=== PATIENT | female | born 2005 | race Caucasian/White ===

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

== ENCOUNTER → 2024-01-05 | Outpatient (CLI) | payer OTHER ==
--- NOTE | 2024-02-14 13:16 | NM ---
Site ID [facility] Patient Loida Dangelo ID [id number] Order # Procedure Gastric Emptying EXAMINATION TYPE: VA gastric emprtying static DATE OF EXAM: 01/12/2024 COMPARISON: THIS EXAM WAS READ DURING PACS DOWNTIME, NO PRIORS AVAILABLE. CLINICAL INDICATION: K21.9 GASTRO -ESOPHAGEAL REFLUX Following administration of 2.1 mCi Tc 99m Sulfur Colloid, projection images of the abdomen were obta ined 240 minutes post ingestion. Patient Emptying Values 1 Hour 21 % 2 Hours 40 % 3 Hours 68 % 4 Hours 91 % Gastroesophagel reflux: None IMPRESSION: Gastric emptying: Gastroesophageal reflux: None
== END | disposition home or self-care (01) ==
LOC: RADNMMAIN 07:07
PROVIDERS: ATTEND Internal Medicine Gastroenterology
DX: K21.9 Gastro-esophageal reflux disease without esophagitis (principal)
CPT/HCPCS: 78264; A9541